=== PATIENT | female | born 1970 | race Caucasian/White ===

== ENCOUNTER → 2020-11-27 | Day surgery (SDC) | payer OTHER ==
[~2020-11-27] MED LIST: ESTRADIOL1 MG PO; NORCO 5-325 TA1 EACH PO; PHENERGAN25 M1 PO; PROGESTERONE200 MG PO
[2020-11-27 08:19] LABS: HCT 44.3 % (37.0-47.0); HGB 14.7 g/dl (12.5-16.0); MCH 31.1 pg (25.0-31.0); MCHC 33.2 g/dL (32.0-36.0); MCV 93.9 fL (78.0-100.0); MPV 9.5 fL (6.0-9.5); RBC 4.72 M/uL (4.20-5.40); RDW 12.5 % (11.5-14.0); WBC 8.9 K/uL (4.0-10.5)
[2020-11-27 08:36] LABS: ALBUMIN 3.7 g/dL (3.4-5.0); BILIRUBIN - TOTAL 0.3 mg/dL (0.2-1.0); BUN/CREAT RATIO (CALC) 15.9 RATIO; CREATININE 0.69 mg/dL (0.51-0.95); TOTAL PROTEIN 7.7 g/dL (6.4-8.2)
== END | disposition home or self-care (01) ==
LOC: FAS 07:18
PROVIDERS: Surgery
DX: Z12.11 Encounter for screening for malignant neoplasm of colon (principal); K63.5 Polyp of colon; F17.210 Nicotine dependence, cigarettes, uncomplicated; Z79.818 Long term (current) use of other agents affecting estrogen receptors and estrogen levels
CPT/HCPCS: 36415; 76705; 80053; J1610; J2250; J2704; J7120

== ENCOUNTER → 2020-12-27 | Day surgery (SDC) | payer OTHER ==
[2020-12-27 07:40] LABS: HCG (URINE) SCREEN NEGATIVE (NEGATIVE)
[2020-12-27 07:45] LABS: HCT 44.2 % (37.0-47.0); HGB 14.8 g/dl (12.5-16.0); MCH 31.2 pg (25.0-31.0); MCHC 33.5 g/dL (32.0-36.0); MCV 93.2 fL (78.0-100.0); MPV 9.5 fL (6.0-9.5); RBC 4.74 M/uL (4.20-5.40); RDW 13.1 % (11.5-14.0); WBC 6.1 K/uL (4.0-10.5)
[2020-12-27 08:01] LABS: ALBUMIN 3.5 g/dL (3.4-5.0); BILIRUBIN - TOTAL 0.5 mg/dL (0.2-1.0); BUN/CREAT RATIO (CALC) 28.3 RATIO; CREATININE 0.53 mg/dL (0.51-0.95); GLOBULIN (CALCULATION) 3.9 g/dL; POTASSIUM 4.5 mmol/L (3.5-5.1); TOTAL PROTEIN 7.4 g/dL (6.4-8.2)
== END | disposition home or self-care (01) ==
LOC: FAS 07:16
PROVIDERS: Surgery
DX: K81.1 Chronic cholecystitis (principal); K59.09 Other constipation; M54.9 Dorsalgia, unspecified; N95.1 Menopausal and female climacteric states; F52.0 Hypoactive sexual desire disorder; G43.909 Migraine, unspecified, not intractable, without status migrainosus; F17.210 Nicotine dependence, cigarettes, uncomplicated; Z90.710 Acquired absence of both cervix and uterus; Z20.822 Contact with and (suspected) exposure to COVID-19
CPT/HCPCS: 36415; 74300; 80053; 84703; C1758; J1885; J2250; J2405; J2550; J2704; J2710; J3010; J7120; Q9967